=== PATIENT | male | born 1950 | race Hispanic/Latino ===

== ENCOUNTER → 2017-06-04 | Outpatient (CLI) | payer OTHER, MEDICARE ==
[~2017-06-04] VITALS: Ht 182.9 cm; Wt 90.7 kg
[~2017-06-04] MED LIST: ATOR20TA65 PO; LOSA25TA21 PO; METF10004 PO; REGADENOSON 0.4 MG/5 ML PF SYG IVP SCH
== END | disposition home or self-care (01) ==
LOC: SHCH 08:36
PROVIDERS: ATTEND Internal Medicine Cardiovascular Disease
DX: I25.10 Atherosclerotic heart disease of native coronary artery without angina pectoris (principal); I10 Essential (primary) hypertension
CPT/HCPCS: 78452; 93017; 96374; A9500 ×2; J2785